=== PATIENT | female | born 1950 | race American Indian/Alaskan Native ===

== ENCOUNTER 2020-07-01 15:13 | Emergency (ER) | payer MEDICARE ==
[2020-07-01] MEDS ORDERED: Ketorolac 30 MG/ML SDV IM ONE (17:24)
[2020-07-01] MEDS ORDERED: Acetaminophen/HYDROcodone 325-5 MG Tab PO ONE (17:25)
--- NOTE | 2020-07-01 17:28 | EDM.PDOC ---
ED HPI GENERAL MEDICAL PROBLEM - General Chief Complaint: Back Pain or Injury Stated Complaint: BACK PAIN Time Seen by Provider: 07/01/20 16:46 - History of Present Illness INITIAL COMMENTS - FREE TEXT/NARRATIVE: Thuy reports today for complaints of chronic low back pain and chronic knee pain, right knee worse then left. She reports pending primary care and neurology visits for her pain. She denies any injury or trauma. She denies fever, chills, nausea, vomiting, diarrhea, constipation, change in bladder function, loss of sensation to genitals or numbness. - Related Data Allergies Allergy/AdvReac Type Severity Reaction Status Date / Time No Known Allergies Allergy Verified 07/01/20 16:10 Home Meds: Home Meds Gabapentin [Neurontin] 600 mg PO TID 07/01/20 [History] Insulin Aspart [NovoLOG] 1 injection SQ TID 07/01/20 [History] Insulin Glarg,Human.Rec.Analog [Lantus Solostar] 1 injection SQ BEDTIME 07/01/20 [History] amLODIPine Besylate [Amlodipine Besylate] 10 mg PO DAILY 07/01/20 [History] cloNIDine HCL [Clonidine HCl] 1 tab PO BID PRN 07/01/20 [History] hydroCHLOROthiazide [Hydrochlorothiazide] 25 mg PO DAILY 07/01/20 [History] lisinopriL [Lisinopril] 40 mg PO DAILY 07/01/20 [History] Past Medical History Cardiovascular History: Reports: Hypertension Endocrine/Metabolic History: Reports: Diabetes, Type II - Past Surgical History Female Surgical History: Reports: Section, Hysterectomy Musculoskeletal Surgical History: Reports: ORIF Social & Family History - Tobacco Use Smoking Status *Q: Current Every Day Smoker Years of Tobacco use: 40 Packs/Tins Daily: 0.5 ED ROS GENERAL - Review of Systems Review Of Systems: See Below Constitutional: Reports: No Symptoms HEENT: Reports: No Symptoms Respiratory: Reports: No Symptoms Cardiovascular: Reports: No Symptoms Endocrine: Reports: No Symptoms GI/Abdominal: Reports: No Symptoms : Reports: No Symptoms Musculoskeletal: Reports: Back Pain (chronic), Other (right knee pain chronic) Skin: Reports: No Symptoms Neurological: Reports: No Symptoms Psychiatric: Reports: No Symptoms Hematologic/Lymphatic: Reports: No Symptoms Immunologic: Reports: No Symptoms ED EXAM,LOWER BACK PAIN/INJURY - Physical Exam Exam: See Below Exam Limited By: No Limitations General Appearance: Alert, WD/WN, Mild Distress Eye Exam: Bilateral Eye: Normal Inspection, PERRL Throat/Mouth: Normal Inspection, Normal Lips, Normal Gums, Normal Oropharynx, Normal Voice, No Airway Compromise Head: Atraumatic, Normocephalic Neck: Normal Inspection, Supple, Non-Tender, Full Range of Motion. No: Lymphadenopathy (R), Lymphadenopathy (L) Respiratory/Chest: No Respiratory Distress, Lungs Clear, Normal Breath Sounds, No Accessory Muscle Use, Chest Non-Tender. No: Crackles, Rales, Rhonchi, Wheezing Cardiovascular: Normal Peripheral Pulses, Regular Rate, Rhythm, No Edema, No Gallop, No Murmur, No Rub GI/Abdominal: Normal Bowel Sounds, Soft, Non-Tender, No Organomegaly, No Distention, No Mass. No: Guarding, Rigid, Rebound Back Exam: Normal Inspection, Decreased Range of Motion, Muscle Spasm, Paraspinal Tenderness. No: CVA Tenderness (R), CVA Tenderness (L), Vertebral Tenderness Extremities: Normal Inspection, Non-Tender, No Pedal Edema, Normal Capillary Refill, Limited Range of Motion (bilateral knees, no worsening then chronic state) Neurological: Alert, Normal Mood/Affect, Normal Dorsiflexion, Normal Plantar Flexion, Normal Reflexes, No Motor/Sensory Deficits, Oriented x 3 DTR - Lower Extremities: 1+: Knee (R), Knee (L) Psychiatric: Normal Affect, Normal Mood Skin Exam: Warm, Dry, Intact, Normal Color, No Rash Lymphatic: No Adenopathy Course - Vital Signs Last Recorded V/S: Last Vital Signs Temp 36.4 C 07/01/20 16:25 Pulse 67 07/01/20 16:25 Resp 14 07/01/20 16:25 BP 119/59 L 07/01/20 16:25 Pulse Ox 95 07/01/20 16:25 - Orders/Labs/Meds Meds: Medications Discontinued Medications Generic Name Dose Route Start Last Admin Trade Name Freq PRN Reason Stop Dose Admin Hydrocodone Bitart/Acetaminophen 1 tab 07/01/20 17:25 07/01/20 17:32 [place] 325-5 Mg PO 07/01/20 17:26 1 tab ONETIME ONE Administration Ketorolac Tromethamine 15 mg 07/01/20 17:24 07/01/20 17:32 Toradol IM 07/01/20 17:25 15 mg ONETIME ONE Administration - Re-Assessments/Exams Free Text/Narrative Re-Assessment/Exam: 07/01/20 17:01 Patient history, negative exam findings and her chronic medications discussed with her. We will provide toradol IM, hydrocodone 5/325mg one tablet three times a day for pain #9 tablets for uncontrolled pain. She is advised to follow up with her primary and neurology for ongoing care/pain management. Patient in agreement with plan. Departure - Departure Time of Disposition: 17:24 Disposition: Home, Self-Care 01 Condition: Fair Clinical Impression: Chronic back pain greater than 3 months duration, Chronic knee pain - Discharge Information *PRESCRIPTION DRUG MONITORING PROGRAM REVIEWED*: Yes *COPY OF PRESCRIPTION DRUG MONITORING REPORT IN PATIENT BRAYAN: No Instructions: Chronic Knee Pain, Adult, [id number], Chronic Back Pain, [id number] Referrals: PCP,None [Primary Care Provider] - Forms: ED Department Discharge Additional Instructions: You have been evaluated and treated for chronic back and knee pain. She has pending appointments with primary provider/neurology. No loss of function or sign of infection. You have been given toradol 15mg IM in the emergency room and hydrocodone 5/325mg tablet for pain. Hard copy prescription for hydrocodone 5/325mg, one tablet three times a day for pain. Follow up with primary on Friday. Suggest possible use of duloxetine for depression/chronic pain if primary feels appropriate. Return to the emergency room for any worsening, issues or concerns. Sepsis Event Note (ED) - Evaluation Sepsis Screening Result: No Definite Risk - Focused Exam Vital Signs: Vital Signs Temp Pulse Resp BP Pulse Ox 07/01/20 16:25 36.4 C 67 14 119/59 L 95 - Assessment/Plan Assessment:: Chronic back pain greater than 3 months duration, Chronic knee pain Plan: Patient evaluated and treated for chronic back and knee pain. She has pending appointments with primary provider/neurology. No loss of function or sign of infection. She has been given toradol 15mg IM in the emergency room and hydrocodone 5/325mg tablet for pain. Hard copy prescription for hydrocodone 5/325mg, one tablet three times a day for pain. Follow up with primary on Friday. Suggest possible use of duloxetine for depression/chronic pain if primary feels appropriate. Return to the emergency room for any worsening, issues or concerns. [place] [employer] COUNSEL[employer] reviewed, appropriate.
== END 2020-07-01 17:58 | disposition home or self-care (01) ==
LOC: JP.ED 15:13 → EDBD 15:13 → JP.ED 17:58
DX: G89.29 Other chronic pain (principal); M54.5 Low back pain; M25.561 Pain in right knee; M25.562 Pain in left knee; I10 Essential (primary) hypertension; E11.9 Type 2 diabetes mellitus without complications; F17.210 Nicotine dependence, cigarettes, uncomplicated; Z90.710 Acquired absence of both cervix and uterus; Z79.899 Other long term (current) drug therapy
CPT/HCPCS: 96372; 99283; A9270; J1885